=== PATIENT | male | born 1970 | race Caucasian/White ===

== ENCOUNTER → 2018-05-09 08:50 | Outpatient (POV) | payer BC, SELFPAY | PROVIDERS: Visit Provider Specialist | DX: M79.632 Pain in left forearm (principal) | CPT/HCPCS: 95886; 95908 ==

== ENCOUNTER → 2018-10-05 08:32 | Outpatient (CLI) | payer BC, SELFPAY ==
--- NOTE | 2018-10-05 08:39 | XR_ITS ---
XR wrist LT min 3V HISTORY pain ITS.REASON: 3 views ORDERING PHYSICIAN: Debbie Wiggins MD PATIENT AGE: 48 years Comparison: None FINDINGS: There is an old ununited mid scaphoid fracture. The distal fracture fragment is displaced laterally x 9 mm. There is some increased density of the proximal pole which could be due to underlying avascular necrosis. No other significant anomalies are evident. 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 The fracture does appear old.
== END ==
PROVIDERS: PCP Family Medicine; Visit Provider Orthopaedic Surgery
DX: M25.532 Pain in left wrist (principal)
CPT/HCPCS: 73110

== ENCOUNTER → 2020-02-13 08:18 | Outpatient (CLI) | payer BC, SELFPAY ==
--- NOTE | 2020-02-13 08:24 | US_ITS ---
PROCEDURE: US ABDOMEN LIMITED CLINICAL INDICATION: ELEVATED LFT COMPARISON: No exams were available for comparison FINDINGS: PANCREAS: Unremarkable. No obvious mass or abnormal fluid collection. No ductal dilatation LIVER: Diffuse increased echogenicity of the liver with poor through transmission of sound consistent with hepatic steatosis. No focal liver lesion demonstrated. There is appropriate direction of blood flow within non dilated portal vein. RIGHT KIDNEY: Unremarkable. Normal size and echogenicity. No hydronephrosis GALLBLADDER: No gallstones, gallbladder wall thickening, pericholecystic fluid, or biliary dilatation. IMPRESSION: Fatty liver otherwise negative right upper quadrant ultrasound Dictated by: Percy Lieberman MD 02/13/2020 09:34 Percy Lieberman MD in [place] 02/13/2020 09:34
== END ==
PROVIDERS: PCP Family Medicine; Visit Provider Family Medicine
DX: R79.89 Other specified abnormal findings of blood chemistry (principal); R94.5 Abnormal results of liver function studies
CPT/HCPCS: 76705

== ENCOUNTER → 2021-02-18 12:10 | Outpatient (POV) | payer BC, SELFPAY | PROVIDERS: Visit Provider Dermatology | DX: Z00.00 Encounter for general adult medical examination without abnormal findings (principal) ==

== ENCOUNTER → 2021-05-27 13:51 | Outpatient (CLI) | payer BC, SELFPAY ==
[2021-05-27 14:48] LABS: Strep Scrn Group A (Rapid) Negative (Negative)
[2021-05-27 14:58] LABS: Basophils # 0.2 K/mm3 (0-0.2); Basophils % 1.5 % (0.1-2.0); Eosinophils % 0.4 % (0.1-12.0); Hematocrit 48.6 % (42.0-52.0); Hemoglobin 15.8 g/dL (14.1-18.0); Lymphocytes # 2.4 K/mm3 (0.7-4.5); Lymphocytes % 20.6 % (10-50); Mean Corpuscular HGB Conc 32.5 g/dL (31.8-35.4); Mean Corpuscular Hemoglobin 30.3 pg (27.0-31.2); Mean Corpuscular Volume 93.2 fl (80-94); Mean Platelet Volume 8.4 fl (7.4-10.4); Monocytes # 0.5 K/mm3 (0.1-1.0); Monocytes % 4.6 % (1.7-9.3); Neutrophils # 8.6 K/mm3 (1.8-7.8); Neutrophils % 72.9 % (37.0-80.0); Platelet Count 353 K/mm3 (142-424); Red Blood Count 5.21 M/mm3 (4.60-6.20); Red Cell Distribution Width 13.4 % (11.5-17.5); White Blood Count 11.8 K/mm3 (4.8-10.8)
== END ==
PROVIDERS: PCP Family Medicine; Visit Provider Nurse Practitioner
DX: Z11.52 Encounter for screening for COVID-19 (principal); J06.9 Acute upper respiratory infection, unspecified
CPT/HCPCS: 36415; 85025; 87275; 87276; 87430; C9803; U0003; U0005

== ENCOUNTER → 2022-08-17 10:24 | Outpatient (CLI) | payer BC, SELFPAY ==
--- NOTE | 2022-08-17 10:28 | CT_ITS ---
FINAL REPORT CLINICAL HISTORY: H/O TOBACCO USE Smoker, 1/2 ppd x 20 years, first lung screening. FINDINGS: CTDI vol (mGy): 2.90. DLP: 107.[address] images of the chest were obtained using the low-dose protocol for screening. There is no evidence of mediastinal or hilar mass or adenopathy. No axillary mass or adenopathy is identified. On the lung window images, a 2 mm left upper lobe nodule is seen near the left major fissure on image 31. There are several calcified granulomas. Mild pulmonary scarring is seen. Limited imaging of the upper abdomen demonstrates a nonspecific, 16 mm mass in the right liver dome, favor hemangioma or cyst. IMPRESSION: 2 mm left upper lobe nodule. Lung RADS category 2. Recommend 12 month followup low-dose CT for further evaluation. Reviewed, Interpreted and Dictated by Nik Weldon III, MD Transcribed by Brina Davenport Authenticated and [facility]
== END ==
PROVIDERS: PCP Family Medicine; Visit Provider Family Medicine
DX: Z87.891 Personal history of nicotine dependence (principal); Z12.2 Encounter for screening for malignant neoplasm of respiratory organs; I10 Essential (primary) hypertension
CPT/HCPCS: 71271

== ENCOUNTER 2022-10-14 08:04 | Day surgery (SDC) | payer BC, SELFPAY ==
[2022-10-05 11:25] VITALS: BMI 31.1
[2022-10-14 08:23] VITALS: BP 140/88; PULSE 101; RESP 18; TEMP 36.6; O2SAT 98
[2022-10-14 08:46] VITALS: O2SAT 98
--- NOTE | 2022-10-14 09:11 | HMH.SCOPE ---
Procedure: Date: 10/14/22 Patient Date of :: 1970 Procedure Performed:: Colonoscopy Indications:: Screening Performing Provider:: Td Moon MD Referring Provider:: Regino Flower MD Sedation:: see rn notes Procedure:: After placing the patient in the left lateral decubitus position, the colonoscopy was gently inserted into the rectum and under direct visualization advanced to the cecum which was identified by transillumination in the right lower quadrant, identification of the ileocecal valve, appendiceal orifice, and cecal strap. Color, texture, mucosa, and anatomy of the colon were carefully examined with the scope. Bowel preparation was good. Findings:: Anal canal: normal Rectum: hemorrhoids Sigmoid colon: sessile polyp less than 5 mm in size. Removed with cold snare polypectomy Descending colon: sessile polyp less than 5 mm in size. Removed with cold snare polypectomy Splenic flexure: normal Transverse colon: normal without polyps or inflammatory changes Hepatic flexure: normal Ascending colon: normal without polyps or inflammatory changes Cecum: normal Terminal ileum: not visualized Recommendations:: Await pathology results Repat colonoscopy in 5 years Complications:: None Estimated blood obtained (mL): 0 Colonoscopy Component Colonoscopy Component Was a colonoscopy performed during today's procedure?: Yes Recommended follow up colonoscopy of at least 10 years?: Yes
[2022-10-14 09:14] VITALS: BP 133/84; PULSE 102; RESP 18; TEMP 36.2; O2SAT 95
[2022-10-14 09:24] VITALS: BP 128/82; PULSE 86; RESP 18; TEMP 36.2; O2SAT 98
--- NOTE | 2022-10-14 09:24 | P.PN_ITS ---
[facility] Disclaimer: The information contained in this section may have been updated after the patient was seen, as this information can be updated by other users. Medical History History of gastroesophageal reflux (GERD) Hyperlipidemia Hypertension Kidney stone Surgical History History of carpal tunnel surgery of left wrist History of tonsillectomy Family History Other No significant family history Social History Smoking Status: Current every day smoker tobacco type: cigarettes packs per day: 1 pack-years: 25 alcohol intake: current substance use type: denies use current occupational status: employed Travel in the last 8 weeks: None household members: none housing: house lives independently: Yes marital status: single education level: college service: No caffeine: Yes special caroline needs: No do you feel safe at home: Yes victim of physical abuse: No victim of emotional abuse: No victim of sexual abuse: No would you like helpful sources: No [facility] Anesthesia Checklist Patient Identification Patient Identification: Verbal (Name & ) Structural Data Admitted From: Home Planned Operative Procedure/s: colonoscopy Consent for Planned Operative Procedure(s) Verified: Yes Airway Assessment C-Spine Mobility Assessed: Yes TMJ Mobility Assessed: Yes Dentition: Good Dentition Neurological Assessment Level of Consciousness: Awake, Alert and Appropriate Anesthesia Plan Anesthesia Risk discussed: Yes Anesthesia Plan: Verified ASA Class: II Anesthesia Type: MAC
[2022-10-14 09:34] VITALS: BP 133/77; PULSE 84; RESP 18; TEMP 36.2; O2SAT 99
[2022-10-14 09:44] VITALS: BP 126/86; PULSE 84; RESP 18; TEMP 36.2; O2SAT 99
== END 2022-10-14 09:44 | disposition home or self-care (01) ==
PROVIDERS: PCP Family Medicine; Visit Provider Internal Medicine
PROC: 0DJD8ZZ Inspection of Lower Intestinal Tract, Via Natural or Artificial Opening Endoscopic (ICD-10-PCS; CPT 45378; principal; 2022-10-14 09:00)
DX: Z12.11 Encounter for screening for malignant neoplasm of colon (principal); K63.5 Polyp of colon; K64.8 Other hemorrhoids
CPT/HCPCS: 45385

== ENCOUNTER 2023-07-12 15:07 | Emergency (ER) | payer BC, SELFPAY ==
[2023-07-12 15:20] VITALS: BP 151/88; PULSE 98; RESP 18; TEMP 36.4; O2SAT 96; BMI 31.4
--- NOTE | 2023-07-12 15:49 | ED_ITS ---
Discharge Plan Disposition Patient Disposition: Home, Self-Care Condition: Good Prescriptions Prescriptions: New azithromycin [Zithromax] 250 mg tablet 250 mg PO UD DOSE PK Qty: 6 0RF Rx Instructions: Take two (2) tablets today, then one (1) tablet days #2 thru #5 benzonatate 100 mg capsule 100 mg PO TIDP PRN (Reason: Cough) Qty: 30 0RF methylprednisolone 4 mg Tablets,Dose Pack 4 mg PO DIRECTED 6 Days Qty: 21 0RF Rx Instructions: Take 1 pack as directed for 6 days guaifenesin [Mucinex] 600 mg tablet extended release 12hr 600 - 1,200 mg PO BIDP PRN (Reason: Congestion) Qty: 30 0RF No Action lisinopril 20 mg tablet 20 mg PO DAILY omeprazole 40 mg capsule,delayed release(DR/EC) 40 mg PO DAILY pravastatin 40 mg tablet 40 mg PO DAILY fexofenadine [Matilde Allergy] 180 mg Tablet 180 mg PO DAILY amlodipine 5 mg Tablet 5 mg PO DAILY Referrals Follow up/Referrals: Regino Flower MD [Primary Care Provider] - See instructions Activity Restrictions/Add. Instructions Additional Instructions/Restrictions: Drink plenty of fluids. Take tylenol or ibuprofen for pain or fever. Take the medications as directed. Follow up with your regular doctor. GO TO THE ER FOR ANY WORSENING SYMPTOMS Clinical Impressions Clinical Impression: Sinusitis, Bronchitis Instructions Patient Instructions: Sinusitis, DI for Sinusitis Discharge ED Provider: Jayjay Bolton [facility] HPI General Stated complaint: jeanine, cough Mode of Arrival: Ambulatory Source of Information: Patient Limitations: No Limitations Time Seen by Provider: 07/12/23 15:49 Description of Symptoms (Recalled from Triage Doc. by RN): Pt's symptoms are congestion, cough, right ear pain, and sinus pressure. HEENT Symptoms (Recalled from RN notes): Yes Resp Symptoms (Recalled from RN notes): No Skin Symptoms (Recalled from RN notes): No MS Symptoms (Recalled from RN notes): No Functional Status (Recalled from RN notes): n/a History of Present Illness Provider Complaint: He states that he has had sinus congestion, ear pain, sore throat, and a cough for the past 2 days. Related Data Home Medications Medication Instructions Recorded Confirmed lisinopril 20 mg tablet 20 mg PO DAILY htn 09/02/18 07/12/23 omeprazole 40 mg capsule,delayed 40 mg PO DAILY Reflux/Acid reflux 09/02/18 07/12/23 release pravastatin 40 mg tablet 40 mg PO DAILY Cholesterol 09/02/18 07/12/23 amlodipine 5 mg tablet 5 mg PO DAILY htn 10/05/22 07/12/23 fexofenadine 180 mg tablet 180 mg PO DAILY allergies 10/05/22 07/12/23 (Matilde Allergy) Previous Rx's Medication Instructions Recorded azithromycin 250 mg tablet 250 mg PO UD DOSE PK #6 tabs 07/12/23 (Zithromax) benzonatate 100 mg capsule 100 mg PO TIDP PRN Cough #30 caps 07/12/23 guaifenesin 600 mg tablet, 600 - 1,200 mg (1 - 2 x 600 mg) PO 07/12/23 extended release 12 hr (Mucinex) BIDP PRN Congestion #30 tabs methylprednisolone 4 mg tablets in 4 mg PO DIRECTED 6 days #21 tabs 07/12/23 a dose pack Allergies Allergy/AdvReac Type Severity Reaction Status Date / Time atorvastatin [From Lipitor] Allergy Diarrhea Verified 07/12/23 15:29 Worker's Comp Is this a Worker's Comp case?: No [facility] Disclaimer: The information contained in this section may have been updated after the patient was seen, as this information can be updated by other users. Medical History (Updated 07/12/23 @ 16:05 by Jayjay Bolton APRN) Kidney stone History of gastroesophageal reflux (GERD) Hyperlipidemia Hypertension Surgical History History of carpal tunnel surgery of left wrist History of tonsillectomy Family History Other No significant family history Social History Smoking Status: Current every day smoker tobacco type: cigarettes packs per day: 1 alcohol intake: current substance use type: denies use current occupational status: employed Travel in the last 8 weeks: None household members: none housing: house lives independently: Yes marital status: single education level: college service: No caffeine: Yes special caroline needs: No do you feel safe at home: Yes victim of physical abuse: No victim of emotional abuse: No victim of sexual abuse: No would you like helpful sources: No ROS Obtained: Yes All systems reviewed & no additional complaints except as documented Constitutional Constitutional: Reports poor appetite Eyes Eyes: Reports system reviewed and no additional complaints, except as documented ENT Ears, Nose, Mouth, and Throat: Reports as per HPI Cardiovascular Cardiovascular: Reports system reviewed and no additional complaints, except as documented and Denies chest pain Respiratory Respiratory: Denies shortness of breath, Reports chest congestion, Reports cough, Denies stridor and Denies wheezing Gastrointestinal Gastrointestingal: Reports system reviewed and no additional complaints, except as documented; Denies abdominal pain, diarrhea or vomiting Musculoskeletal Musculoskeletal: Reports system reviewed and no additional complaints, except as documented and Denies arthralgias Integumentary/Breasts Skin/Breast: Reports system reviewed and no additional complaints, except as documented and Denies rash Neurologic Neurologic: Denies paresthesias Allergic/Immunologic Allergic/Immunologic: Denies wheezing Physical Exam General General appearance: alert and in no apparent distress Eye Eye exam: Present normal appearance, PERRL and EOMI ENT ENT exam: Present mucous membranes moist and normal external ear exam Expanded ENT Exam External ear exam: Present normal external inspection TM/Canal exam: Bilateral TM: erythema and bulging Nose exam: Absent sinus tenderness Nasal speculum exam: Bilateral: normal Mouth exam: Present normal external inspection; Absent drooling Teeth exam: Present normal inspection Throat exam: Present tonsillar erythema and tonsillomegaly Neck Neck exam: Present normal inspection, full ROM and trachea midline; Absent tenderness, lymphadenopathy or thyromegaly Chest Chest inspection: Present normal inspection and symmetric chest wall rise; Absent tenderness or rash Respiratory Respiratory exam: Present normal lung sounds bilaterally; Absent respiratory distress, wheezes, stridor or accessory muscle use Cardiovascular Cardiovascular exam: Present regular rate, normal rhythm and normal heart sounds Abdominal Exam Abdominal exam: Present soft; Absent distention, tenderness, guarding, rebound or rigidity Extremities Exam Extremities exam: Present normal inspection, full ROM and normal capillary refill; Absent tenderness or calf tenderness Back Exam Back exam: Present normal inspection and full ROM; Absent tenderness Neurological Exam Neurological exam: Present alert and oriented X3 Psychiatric Psychiatric exam: Present normal affect and normal mood Skin Skin exam: Present warm, dry, intact and normal color Lymphatic Lymphatic Findings: no adenopathy Medical Decision Making Medical Records Medical records reviewed: No I reviewed the patient's medical records. Christian Inquiry Pt receiving controlled substance: No Vital Signs: 07/12/23 15:20 Temperature 97.6 F Temperature Source Oral Pulse Rate [Right Radial] 98 H Respiratory Rate 18 Blood Pressure [Right Arm] 151/88 H Blood Pressure Mean [Right Arm] 109 Blood Pressure Source [Right Arm] Automatic Cuff Blood Pressure Position [Right Arm] Sitting 02 Sat by Pulse Oximetry 96 Oxygen Delivery Method Room Air Lab Data Lab results reviewed: Yes I reviewed the patient's lab results.
[2023-07-12 16:12] VITALS: BP 151/88; PULSE 98; RESP 18; TEMP 36.4; O2SAT 96
== END 2023-07-12 16:12 | disposition home or self-care (01) ==
PROVIDERS: Emergency Provider Nurse Practitioner Family; PCP Family Medicine
DX: J40 Bronchitis, not specified as acute or chronic (principal); J01.90 Acute sinusitis, unspecified; R05.9 Cough, unspecified; H92.01 Otalgia, right ear; R09.81 Nasal congestion; J02.9 Acute pharyngitis, unspecified; E78.5 Hyperlipidemia, unspecified; I10 Essential (primary) hypertension; F17.210 Nicotine dependence, cigarettes, uncomplicated
CPT/HCPCS: 99204; 99212; G0463

== ENCOUNTER 2023-08-27 14:42 | Outpatient (CLI) | payer BC, SELFPAY ==
--- NOTE | 2023-08-27 14:45 | CT_ITS ---
FINAL REPORT CLINICAL HISTORY: H/O TOBACCO USE SMOKER 1/2 PPD, 20 YEARS. COMPARISON: 08/17/2022 FINDINGS: CT CHEST LOW DOSE SCREENING HISTORY: Screening exam for lung cancer. Former smoker, 10 pack year smoking history DOSE: CTDIvol: 2.9 mGy, DLP: 102.12 mGy*cm COMPARISON: 08/17/2022 TECHNIQUE: Axial CT without IV contrast administration using low dose protocol FINDINGS: No acute lung disease is present . The 2 mm nodule in the left upper lobe is again seen, tiny and oval in shape, along the major fissure consistent with an intrafissural node. This is best seen on image #32. No pleural or pericardial effusion is seen . No adenopathy or mass lesion is present . IMPRESSION: No change tiny left upper lobe nodule as described, felt to be most likely an intrafissural node. LUNG RADS CATEGORY 1 RECOMMENDATION: 12 month LDCT follow up Reviewed, Interpreted and Dictated by Kike Negron MD Transcribed by Ilene Villegas Authenticated and [facility]
== END 2023-08-27 23:59 | disposition home or self-care (01) ==
LOC: RAD 14:43
PROVIDERS: PCP Family Medicine; Visit Provider Family Medicine
DX: Z87.891 Personal history of nicotine dependence (principal); Z12.2 Encounter for screening for malignant neoplasm of respiratory organs
CPT/HCPCS: 71271

== ENCOUNTER 2023-08-28 23:01 | Emergency (ER) | payer BC, SELFPAY ==
[2023-08-28 23:02] VITALS: BP 152/101; PULSE 99; RESP 17; TEMP 36.7; O2SAT 98; BMI 34.1
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
[2023-08-28 23:21] LABS: Basophils # 0.1 K/mm3 (0-0.2); Basophils % 1.4 % (0.1-2.0); Eosinophils # 0.1 K/mm3 (0.0-0.4); Eosinophils % 1.8 % (0.1-12.0); Hematocrit 45.2 % (42.0-52.0); Hemoglobin 15.3 g/dL (14.1-18.0); Lymphocytes # 2.5 K/mm3 (0.7-4.5); Lymphocytes % 34.2 % (10-50); Mean Corpuscular HGB Conc 33.9 g/dL (31.8-35.4); Mean Corpuscular Hemoglobin 31.6 pg (27.0-31.2); Mean Corpuscular Volume 93.2 fl (80-94); Mean Platelet Volume 7.6 fl (7.4-10.4); Monocytes # 0.5 K/mm3 (0.1-1.0); Monocytes % 6.3 % (1.7-9.3); Neutrophils # 4.2 K/mm3 (1.8-7.8); Neutrophils % 56.4 % (37.0-80.0); Platelet Count 297 K/mm3 (142-424); Red Blood Count 4.85 M/mm3 (4.60-6.20); Red Cell Distribution Width 13.4 % (11.5-17.5); White Blood Count 7.4 K/mm3 (4.8-10.8)
[2023-08-28 23:22] LABS: Microscopic, Urine URINE MICROSCOPIC (MICROSCOPIC)
[2023-08-28 23:23] LABS: Appearance,Urine CLEAR (Clear); Bilirubin,Urine Negative (Negative); Blood, Urine TRACE-I (Negative); Color,Urine YELLOW (Yellow); Glucose,Urine (UA) Negative (Negative); Ketones,Urine Negative (Negative); Leukocyte Esterase,Urine Negative (Negative); Nitrate,Urine Negative (Negative); Protein,Urine Negative (Negative); Specific Gravity, Urine 1.015 (1.005-1.030); Urobilinogen,Urine 0.2 EU/dl (0.2)
[2023-08-28 23:29] LABS: Chloride 103 mmol/L (98-107); Sodium 136 mmol/L (136-145)
[2023-08-28 23:31] LABS: Alanine Aminotransferase 65 U/L (12-78); Aspartate Amino Transferase 64 U/L (17-59); Blood Urea Nitrogen 15 mg/dl (9-20); Creatinine Clearance Estimated 87 mL/min (50-200); Estimated Glomerular Filt Rate 53 ml/min (>60); GFR (African American) 65 ML/MIN (>60)
[2023-08-28 23:32] LABS: Albumin Level 4.2 g/dl (3.5-5.0); Albumin/Globulin Ratio 1.8 (1.1-1.8); Alkaline Phosphatase 73 U/L (38-126); Bilirubin,Total 0.6 mg/dl (0.2-1.3); Calcium 9.4 mg/dl (8.4-10.2); Carbon Dioxide 27 mmol/L (22.0-30.0); Ethyl Alcohol 208 mg/dl (0-10); Globulin 2.4 g/dL (1.3-3.2); Glucose 118 mg/dl (74-100); Total Protein,Serum 6.6 g/dl (6.3-8.2)
[2023-08-28 23:33] VITALS: BP 140/91; PULSE 86; RESP 18; O2SAT 96
[2023-08-28 23:35] LABS: Activated Partial Thrombo Time 25.9 seconds (22.8-30.6); INR 1.07 (0.9-1.1); Prothrombin Time 11.5 seconds (10.1-12.5)
[2023-08-28] MEDS: ONDANSETRON 4MG/2ML VIAL 4 MG IV (23:37)
[2023-08-28] MEDS: MORPHINE 4MG/ML SYRINGE 4 MG IV (23:37)
[2023-08-28] MEDS: LACTATED RINGERS 1000ML 1,000 ML 999 ML IV (23:37)
[2023-08-28 23:39] LABS: Amphetamine/Metha Screen,Urine Negative ng/ml (<1000)
[2023-08-28 23:40] LABS: Barbiturates Screen,Urine Negative ng/ml (<200)
[2023-08-28 23:41] LABS: Benzodiazepines Screen,Urine Negative ng/ml (<200); Cannabinoid Screen,Urine Negative ng/ml (<50)
[2023-08-28 23:42] LABS: Cocaine Screen,Urine Negative ng/ml (<300)
[2023-08-28 23:43] LABS: Methadone Screen,Urine Negative ng/ml (<300); Opiate Screen,Urine Negative ng/ml (<300)
[2023-08-28 23:44] LABS: Phencyclidine Screen,Urine Negative ng/ml (<25)
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
[2023-08-28 23:46] LABS: Lactate Venous 1.9 mmol/L (0.4-2.0); VBG Base Excess -4.5 mmol/L (-2.4-2.3); VBG HCO3 20.5 mmol/L (23-30); VBG PCO2 34.6 mmol/L (35-51); VBG PH 7.39 mmol/L (7.31-7.41); VBG PO2 45.8 mmol/L (28-40); VBG Total CO2 21.5 mmol/L (23-27)
[2023-08-28 23:59] LABS: RBC,Urine Occasional #/hpf (0-3)
[2023-08-29] VITALS (7 sets, daily range): BP systolic 114–138; BP diastolic 69–95; PULSE 75–80; RESP 14–18; TEMP 36.6; O2SAT 97–99; BMI 34.2
[2023-08-29] MEDS: MORPHINE 4MG/ML SYRINGE 4 MG IV (02:36)
[2023-08-29] MEDS: 0.9 % SODIUM CHLORIDE 50 ML VIAL 100 ML IV (03:19)
[2023-08-29] MEDS: SODIUM CHLORIDE 0.9% 10ML SYR (RAD ONLY) 10 ML IV (03:19)
[2023-08-29] MEDS: IOPAMIDOL-370 (76%);100ML BOTTLE 200 ML IV (03:19)
[2023-08-29] MEDS: OXYCODONE 5MG IMMEDIATE RELEASE TABLET 5 MG PO (04:38)
--- NOTE | 2023-08-29 05:01 | PC.NURSE ---
Pt placed in a posterior long arm splint. Pt given instructions on care and advised to follow up with ortho. CR
== END 2023-08-29 05:04 | disposition home or self-care (01) ==
PROVIDERS: Emergency Provider Emergency Medicine; PCP Family Medicine
DX: S52.122A Displaced fracture of head of left radius, initial encounter for closed fracture (principal); K44.9 Diaphragmatic hernia without obstruction or gangrene; K76.0 Fatty (change of) liver, not elsewhere classified; V86.69XA Passenger of other special all-terrain or other off-road motor vehicle injured in nontraffic accident, initial encounter; K21.9 Gastro-esophageal reflux disease without esophagitis; E78.5 Hyperlipidemia, unspecified; I10 Essential (primary) hypertension
CPT/HCPCS: 29105; 70450; 70496; 70498; 71275; 72125; 72128; 72131; 72192; 73060; 73080; 73090; 74174; 80053; 80307; 81001; 82803; 85025; 85610; 85730; 96361; 96374; 96375; 96376; 99285; J2405; Q9967

== ENCOUNTER 2023-09-02 13:56 | Outpatient (CLI) | payer BC, SELFPAY ==
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
== END 2023-09-02 23:59 | disposition home or self-care (01) ==
LOC: RAD 13:57
PROVIDERS: PCP Family Medicine; Visit Provider Orthopaedic Surgery
DX: M25.522 Pain in left elbow (principal); S52.122A Displaced fracture of head of left radius, initial encounter for closed fracture
CPT/HCPCS: 73080

== ENCOUNTER 2023-09-17 14:09 | Outpatient (CLI) | payer BC, SELFPAY ==
--- NOTE | 2023-09-17 14:10 | CT_ITS ---
FINAL REPORT TECHNIQUE: Axial imaging of the left elbow was obtained without contrast. Reformatted images were also obtained and reviewed. This study was performed with techniques to keep radiation doses as low as reasonably achievable (ALARA). Individualized dose reduction techniques using automated exposure control or adjustment of mA and/or kV according to the patient's size were employed. CLINICAL HISTORY: pain FINDINGS: There is redemonstration of a fracture of the lateral radial head with cortical offset. This is best seen on image 31 of series 602. Fracture extends to the joint space. No other bony abnormality is identified. Soft tissues are unremarkable. IMPRESSION: Redemonstration of fracture of the lateral radial head with cortical offset extending to the joint space. Reviewed, Interpreted and Dictated by Dong Branch MD Transcribed by Brina Davenport Authenticated and [facility]
== END 2023-09-17 23:59 | disposition home or self-care (01) ==
LOC: RAD 14:10
PROVIDERS: PCP Family Medicine; Visit Provider Orthopaedic Surgery
DX: M25.522 Pain in left elbow (principal); S52.122A Displaced fracture of head of left radius, initial encounter for closed fracture
CPT/HCPCS: 73200

== ENCOUNTER 2023-10-26 12:28 | Outpatient (CLI) | payer BC, SELFPAY ==
--- NOTE | 2023-10-26 12:35 | XR_ITS ---
FINAL REPORT CLINICAL HISTORY: Lt Elbow Fx COMPARISON: CT of the elbow dated 09/17/2023 FINDINGS: AP, oblique, and lateral views of the right elbow were obtained. There is a prior CT available for comparison dated 09/17/2023. There is a subtle radial head fracture again noted. Joint space is preserved. There is no joint effusion or other soft tissue abnormality. IMPRESSION: Subtle radial head fracture again identified, as seen on the prior CT of the elbow dated 09/17/2023. Reviewed, Interpreted and Dictated by Nik Weldon III, MD Transcribed by Ilene Villegas Authenticated and [facility]
== END 2023-10-26 23:59 | disposition home or self-care (01) ==
LOC: RAD 12:28
PROVIDERS: PCP Family Medicine; Visit Provider Orthopaedic Surgery
DX: M25.522 Pain in left elbow (principal); S52.122A Displaced fracture of head of left radius, initial encounter for closed fracture
CPT/HCPCS: 73080

== ENCOUNTER 2023-12-08 11:00 | Outpatient (RCR) | payer BC, SELFPAY | END 2023-12-08 11:05 | disposition home or self-care (01) | LOC: OT 11:00 | PROVIDERS: Visit Provider Orthopaedic Surgery | DX: M25.522 Pain in left elbow (principal); S52.122A Displaced fracture of head of left radius, initial encounter for closed fracture | CPT/HCPCS: 97010; 97014; 97035; 97110; 97140; 97165; G0283 ==

== ENCOUNTER 2024-08-23 08:35 | Outpatient (CLI) | payer BC, SELFPAY ==
--- NOTE | 2024-08-23 08:37 | CT_ITS ---
FINAL REPORT TECHNIQUE: Axial CT images of the chest were obtained without contrast. Low-dose protocol was utilized. This study was performed with techniques to keep radiation doses as low as reasonably achievable (ALARA). Individualized dose reduction techniques using automated exposure control or adjustment of mA and/or kV according to the patient's size were employed. CLINICAL HISTORY: SCREENING FORMER SMOKER QUIT 1 YEAR AGO, 1PPD X30 YEARS COMPARISON: 08/27/2023 FINDINGS: CT CHEST WITHOUT, LOW DOSE SCREENING CT Di Vol: 2.90 mGy DLP: 108.64 mGy*cm There is no axillary, mediastinal, or hilar adenopathy. The heart size is normal. There is no pleural or pericardial effusion. The lung windows show no suspicious mass or nodule. Calcified granulomas are noted in the left upper and lower lobes. Limited images of the upper abdomen demonstrate fatty infiltration of the liver. IMPRESSION: No suspicious mass or nodule. LR Category 1: 12 month follow-up low-dose chest CT is recommended per Fleischner criteria. Reviewed, Interpreted and Dictated by Dong Branch MD Transcribed by Nichelle Boland Authenticated and [facility]
--- OUTSIDE RECORDS SUMMARY | 2024-08-23 08:37 | XMS_ITS | Data Portability ---
Author Organization [facility] [place] [facility] Address [address] [place] [address] Care Team Providers Care Nanotechnologist Name Role Phone VANNESSA GAGNON Referring Provider DEBORAH SCHNEIDER Primary Care Provider Assessment Encounter Date Assessment Date Assessment LastModified by Organization Details LastModified Time 06/14/2019 06/14/2019 MLF 1) Moderate digital brawny edema (+) fabric bias 2) Moderate ulnar and median nerve irritation with mild hypersensitivity 3) Deficits with pec minor muscle balance and scapular stabilization [email or web address] Not available 06/14/2019 13:15:08 06/22/2019 06/22/2019 Patient will continue working with therapy on aggressive motion and now can discontinue use of his splint and begin working on strengthening exercises as well. Okay for gradual return to activity as tolerated. I encouraged him to continue to refrain from smoking and nicotine use. Discussed that if he has persistent soreness related to the underlying hardware, that in the future we could discuss removal of the hardware if needed. Follow-up again in 6 weeks for repeat assessment and x-rays. [email or web address] Not available 06/23/2019 10:54:44 06/26/2019 06/26/2019 MLF 1) Moderate digital brawny edema (+) fabric bias 2) Moderate ulnar and median nerve irritation with mild hypersensitivity 3) Deficits with pec minor muscle balance and scapular stabilization Not available 06/26/2019 13:00:55 07/05/2019 07/05/2019 MLF 1) Moderate digital brawny edema (+) fabric bias 2) Moderate ulnar and median nerve irritation with mild hypersensitivity 3) Deficits with pec minor muscle balance and scapular stabilization [email or web address] Not available 07/05/2019 13:56:08 09/01/2019 09/01/2019 Patient is clinically and radiographically healed. Okay to continue all activity with the hand and wrist as tolerated without restriction. He'll continue working on his home therapy regimen. Patient will follow up in clinic on an as-needed basis should additional questions or concerns arise. [email or web address] Not available 09/01/2019 17:35:59 Plan of Treatment Reminders Order Date Submit Date Provider Last Modified By Organization Details Last Modified Time Details Appointments None record ed. Lab None record ed. Referral None record ed. Procedures None record ed. Surgeries None record ed. Imaging None record ed. Medication Orders None record ed. Patient TargetsNo targets recorded. Patient Instructions Encounter Date Encounter Id Patient Instructions Last Modified By Organization Details Last Modified Time 06/14/2019 [id number] Cubital Tunnel Syndrome-LC [email or web address] Not available 06/14/2019 14:38:40 STG 1) Improving functional AROM to within 80-90% of the unaffected within an appropriate time-frame from the injury/surgery. 2) Obtain intrinsic length with a PDC of < 1cm and within 80-90% of the unaffected in 3-4 weeks 3) To achieve 80-90% of functional digital pre press operator and pinch strength to maintain normal ADL function Rehab potential is Good Plan of Care (POC: 1-2x/week for 4-6 weeks. [email or web address] Not available 06/14/2019 13:15:08 06/26/2019 [id number] Cubital Tunnel Syndrome-LC [email or web address] Not available 06/26/2019 14:00:15 STG 1) Improving functional AROM to within 80-90% of the unaffected within an appropriate time-frame from the injury/surgery. 2) Obtain intrinsic length with a PDC of < 1cm and within 80-90% of the unaffected in 3-4 weeks 3) To achieve 80-90% of functional digital pre press operator and pinch strength to maintain normal ADL function Rehab potential is Good Plan of Care (POC: 1-2x/week for 4-6 weeks. [email or web address] Not available 06/26/2019 13:00:55 07/05/2019 [id number] Cubital Tunnel Syndrome-LC [email or web address] Not available 07/05/2019 14:41:12 STG 1) Improving functional AROM to within 80-90% of the unaffected within an appropriate time-frame from the injury/surgery. 2) Obtain intrinsic length with a PDC of < 1cm and within 80-90% of the unaffected in 3-4 weeks 3) To achieve 80-90% of functional digital pre press operator and pinch strength to maintain normal ADL function Rehab potential is Good Plan of Care (POC: 1-2x/week for 4-6 weeks. Not available 07/05/2019 13:56:08 Reason for Referral None Reported. Results Created Date Observation Date Name Description Value Unit Range Abnormal Flag Note LastModifiedBy Organization Detail LastModifiedTime 06/22/19 20 06/22/2019 XR, wrist , 2 view [place] [facility] [address] [place] [address] Jess khalil Name: KHANG khalil : 973 Jess khalil 58 Orderi ng Provid er: MACIEJ SHEIKH EXAM DATE: 2019 EXAM: XR LT WRIST, AP/LAT HISTOR Y: Follow up of prior surger y. COMPAR GUILLERMO: 020 FINDIN GS: Again visual ized 9 screws along the dorsum of the carpus for 4 corner fusion . There is no eviden ce of loosen ing or compli cation . No acute fractu re is identi fied. There has been excisi on of the scapho id. IMPRES MADHU: 1. The patien t is status post scapho idecto my and 4 corner fusion in the left wrist withou t eviden ce of loosen ing or compli cation . Interp reted By: Augusto kasper MD Electr onical ly Signed By: Augusto kasper MD on 020 1:37 PM DBA_BACKFIL_ [facility] [place] [address], [place], [address], 10/30/2021 03:39:34 09/01/19 20 09/01/2019 XR, wrist , 2 view [place] [facility] [address] [place] [address] Jess khalil Name: KHANG khalil : 973 Patien t 58 Orderi ng Provid er: MACIEJ SHEIKH EXAM DATE: 2019 EXAM: XR LT WRIST, AP/LAT HISTOR Y: Follow up of prior surger y. COMPAR GUILLERMO: 020 FINDIN GS: Again visual ized 9 screws along the dorsum of the carpus for 4 corner fusion . There is no eviden ce of loosen ing or compli cation . No acute fractu re is identi fied. There has been excisi on of the scapho id. IMPRES MADHU: 1. The patien t is status post scapho idecto my and 4 corner fusion in the left wrist withou t eviden ce of loosen ing or compli cation . Interp reted By: Augusto kasper MD Electr onical ly Signed By: Augusto kasper MD on 09/01/19 10:14 AM [email or web address] [facility] [place] [address] , [place], [address], 10/30/2021 03:39:34 Result Notes None recorded. Problems No Known Problems Procedures Surgical History Date Name Laterality Status Provider Name and Address Organization Details Recorded Time 0 OT Therapeutic Exercise completed RILEY MERRITT/L, CHT [address] [place], [address], [facility] 06/07/2019 11:49:14 0 OT Therapeutic Exercise completed RILEY MERRITT/Erasmo, CHT [address] [place], [address], [facility] 06/05/2019 14:25:43 0 OT Manual Therapy completed RILEY MERRITT/Erasmo, CHT [address] [place], [address], [facility] 06/05/2019 14:25:46 0 PT Paraffin Bath completed RILEY MERRITT/Erasmo, CHT [address] [place], [address], [facility] 06/05/2019 13:42:17 0 OT Therapeutic Exercise completed MYESHA BROWNE, OTR/L, CHT [address] [place], [address], [facility] 06/01/2019 12:21:41 0 OT Manual Therapy completed MYESHA BROWNE, OTR/L, CHT [address] [place], [address], [facility] 06/01/2019 10:24:57 0 PT Paraffin Bath completed MYESHA BROWNE, OTR/L, CHT [address] [place], [address], [facility] 06/01/2019 10:24:58 0 OT Therapeutic Exercise completed MYESHA BROWNE, OTR/L, CHT [address] [place], [address], [facility] 05/30/2019 14:56:24 0 OT Manual Therapy completed MYESHA BROWNE, OTR/L, CHT [address] [place], [address], [facility] 05/30/2019 14:56:21 0 PT Paraffin Bath completed MYESHA BROWNE, OTR/L, CHT [address] [place], [address], [facility] 05/30/2019 14:04:29 0 OT Therapeutic Exercise completed MYESHA BROWNE, OTR/L, CHT [address] [place], [address], [facility] 05/25/2019 10:58:59 0 OT Manual Therapy completed MYESHA BROWNE, OTR/L, CHT [address] [place], [address], [facility] 05/25/2019 10:59:02 0 PT Paraffin Bath completed MYESHA BROWNE, OTR/L, CHT [address] [place], [address], [facility] 05/25/2019 10:31:58 0 OT Therapeutic Exercise completed MYESHA BROWNE, OTR/L, CHT [address] [place], [address], [facility] 05/23/2019 14:04:09 0 OT Manual Therapy completed MYESHA BROWNE, OTR/L, CHT [address] [place], [address], [facility] 05/23/2019 13:02:08 0 PT Paraffin Bath completed MYESHA BROWNE, OTR/L, CHT [address] [place], [address], [facility] 05/23/2019 13:02:08 0 OT Therapeutic Exercise completed MYESHA BROWNE, OTR/L, CHT [address] [place], [address], [facility] 05/18/2019 11:45:22 0 OT Manual Therapy completed MYESHA BROWNE, OTR/L, CHT [address] [place], [address], [facility] 05/18/2019 11:45:25 0 PT Paraffin Bath completed MYESHA BROWNE, OTR/L, CHT [address] [place], [address], [facility] 05/18/2019 11:44:39 0 OT Therapeutic Exercise completed MYESHA BROWNE, OTR/L, CHT [address] [place], [address], [facility] 05/16/2019 11:27:19 0 OT Manual Therapy completed MYESHA BROWNE, OTR/L, CHT [address] [place], [address], [facility] 05/16/2019 10:53:01 0 PT Paraffin Bath completed MYESHA BROWNE, OTR/L, CHT [address] [place], [address], [facility] 05/16/2019 10:53:01 0 Orthotic, WHO, Static Custom completed MYESHA BROWNE OTR/L, CHT [address] [place], [address], [facility] 05/11/2019 10:17:13 0 OT Therapeutic Exercise completed MYESHA BROWNE OTR/L, CHT [address] [place], [address], [facility] 05/11/2019 10:45:10 0 OT Manual Therapy completed MYESHA BROWNE OTR/L, CHT [address] [place], [address], [facility] 05/11/2019 10:45:06 0 PT Paraffin Bath completed MYESHA BROWNE OTR/L, CHT [address] [place], [address], [facility] 05/11/2019 10:17:18 0 OT Manual Therapy completed MYESHA BROWNE OTR/L, CHT [address] [place], [address], [facility] 05/02/2019 13:21:37 9 OT Manual Therapy completed MYESHA BROWNE OTR/L, CHT [address] [place], [address], [facility] 04/12/2019 12:46:37 9 OT Manual Therapy completed MYESHA BROWNE OTR/L, CHT [address] [place], [address], [facility] 04/05/2019 13:23:42 9 OT Evaluation - Moderate complexity completed MYESHA BROWNE OTR/L, CHT [address] [place], [address], [facility] 03/31/2019 10:45:58 9 Op Note completed SMITHA SHEIKH MD [address] [place], [address], [facility] 03/29/2019 17:27:45 9 Injection Joint/Bursa, Interm completed SMITHA SHEIKH MD [address] [place], [address], [facility] 11/01/2018 19:16:59 Imaging Results Imaging Date Name Status LastModified by Organiz [facility] Details LastModified Time 06/22/2019 XR, wrist, 2 view completed DBA_BACKFIL_ [address] [facility] [place] [address] , [place], [address], 10/30/2021 03:39:34 09/01/2019 XR, wrist, 2 view completed DBA_BACKFIL_ [address] [facility] [place] [address] , [place], [address], 10/30/2021 03:39:34 Procedure Notes None recorded. Medical Equipment None Reported. Allergies Allergen ID Allergen Name Allergen Category Reaction Reaction Severity Criticality Documentation Date Start Date Code Code System Note Provider Name and Address Organization Details Recorded Time 219431 Product containin g 3-hydroxy -3-methyl glutaryl- coenzyme A reductase inhibitor (product) medicatio n diarrhea Not available Not available 03/21/2019 06651 009 SNOMED jose stero l medic ation ; pt doesn 't remem edd [facility]12 Medications Name Sig Start Date Stop Date Status Note LastModified by Organization Details LastModified Time amoxicillin 500 mg capsule 11/01 completed Not Available Not Available Not Available pravastatin 40 mg tablet active Not Available Not Available Not Available lisinopril 20 mg tablet active Not Available Not Available Not Available omeprazole 40 mg capsule,del ayed release active Not Available Not Available Not Available meloxicam 7.5 mg tablet Take 1 tablet po qd with food regardles s of pain level for 1 week, then take only prn for pain relief thereafte r 05/11 completed Not Available Not Available Not Available gabapentin 100 mg capsule Take 1 capsule po qhs for 2 week 05/11 completed Not Available Not Available Not Available fluticasone propionate 50 mcg/actuati on nasal spray,suspe nsion active Not Available Not Available Not Available oxycodone 5 mg tablet take 1 tab po q 4-6 hrs prn uncontrol led pain 03/21 completed Not Available Not Available Not Available Claritin active Not Available Not Avai lable Not Available Tylenol active prn Not Available Not Avail able Not Available Vitals Date Recorded Body height Body mass index (BMI) Body weight Provider Name and Address Organization Details Last Updated DateTime 06/22/2019 175.26 cm 29.5 kg/m2 69997.47 g Shalonda Torrez [facility] 06/22/2019 13:48:02 Date Recorded Body height Body mass index (BMI) Body weight Provider Name and Address Organization Details Last Updated DateTime 09/01/2019 175.26 cm 31 kg/m2 78938.4 g Mallorie Ham [facility] 09/01/2019 10:20:16 Social History Question Answer Notes LastModified by Organizat ion Details LastModified Time Tobacco Smoking Status Former Smoker quit 9 Mallorie Jitendra [facility] 03/21/2019 09:13:38 What Is Your Level Of Alcohol Consumption? Occasional Information not available 11/01/2018 What Is Your Level Of Caffeine Consumption? Moderate Information not available 11/01/2018 Are You Currently Employed? Yes Information not available 03/21/2019 Do You Or Have You Ever Used E-cigarettes Or Vape? 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 Right Information not available 11/01/2018 Marital Status Single Informatio n not available 11/01/2018 What Was The Date Of Your Most Recent Tobacco Screening? 11/01/2018 Information not available 06/13/2019 How Much Tobacco Do You Smoke? No Information not available 03/21/2019 Do You Use Any Illicit Or Recreational Drugs? No Information not available 11/01/2018 How Many Years Have You Smoked Tobacco? 20 Information not available 11/01/2018 Sex: Unknown Functional Status None recorded. Mental Status None recorded. Family History Relationship Description Onset Age of this Age Resolved Age Notes LastModified by Organization Details LastModified Time Father No current problems or disability Not available 11/01 10:31:47 Mother No current problems or disability Not available 11/01 10:31:47 Medical History Condition Response Allergies/Hayfever N Anxiety/Depression N Gout N Other N Thyroid Disease N Kidney Stones Y Heart Conditions N Hernia N Migraines N COPD N Glaucoma N Pneumonia N Skin Problems N Immune System Disorder N Anesthesia Complications N Heart Attack ([place]) N Mental Illness N Neurological Problems N Diabetes N Rheumatic Fever N Bleeding Disorder N Arthritis N Seizures/Epilepsy N Blood Clot N Tuberculosis N Genetic Disorder N AIDS/HIV N Cancer N Stroke N Asthma N Blood Thinners N Alcohol Overuse/Alcohol Abuse N Sleep Apnea Y High Cholesterol Y Liver Disease N Included as Review of Systems Y Hypertension Y Osteoporosis N Kidney Disease N Past Encounters Encounter ID Performer Location Encounter Start Date Encounter Closed Date Diagnosis/Indication Diagnosis SNOMED-CT Code Diagnosis ICD10 Code Diagnosis Note [id number] [facility] [address] [place] [address] 11/01/2018 09:37:24 11/01/2018 12:23:13 Fracture of scaphoid bone of wrist 78577690 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 No evidence of radiculopa thy or peripheral neuropathy . 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 No evidence of radiculopa thy or peripheral neuropathy . 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 No evidence of radiculopa thy or peripheral neuropathy . Cubital tu nnel syndrome 26994095 G56.22 Left EMG negative cubital tunnel syndrome with subluxatin g ulnar nerve [id number] SURGERY SCHEDULE [address] [facility] [place] [address] 03/29/2019 11:49:02 03/29/2019 11:50:23 [id number] MYESHA BROWNE, OTR/L, CHT PHYSICAL THERAPY / HAND THERAPY [facility] [address] [place] [address] 03/31/2019 09:46:10 03/31/2019 13:09:02 Cubital tunnel syndrome 96609140 G56.22 Osteoarthr itis of wrist 536735060 M19.039 with 4 corner fusion and scaphoid excision [id number] MYESHA BROWNE, OTR/L, CHT PHYSICAL THERAPY / HAND THERAPY [place] [address] [place] [address] 04/05/2019 12:30:16 04/05/2019 16:21:47 Cubital tunnel syndrome 93078639 G56.22 Osteoarthr itis of wrist 870769268 M19.039 with 4 corner fusion and scaphoid excision [id number] [facility] [address] [place] [address] 04/12/2019 10:34:53 04/17/2019 08:03:31 Postoperative care 403766074 Z48.89 Doing well s/p Left wrist scaphoid excision and four-corne r arthrodesi s with posterior interosseo us nerve neurectomy ; Left cubital tunnel release with subcutaneo us ulnar nerve transposit ion; Left endoscopic carpal tunnel release (DOS: 03/29/19) Post op films of the left wrist today reveal the patient is status post scaphoidec reza and 4 corner fusion with no evidence of hardware complicati on or loosening. 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 No evidence of radiculopa thy or peripheral neuropathy . Cubital tu nnel syndrome 56068288 G56.22 Left EMG negative cubital tunnel syndrome with subluxatin g ulnar nerve [id number] MYESHA BROWNE, JAGJITR/L, T PHYSICAL THERAPY / [facility] [place] [address] 04/12/2019 10:35:58 04/12/2019 12:55:26 Cubital tunnel syndrome 45758256 G56.22 Osteoarthr itis of wrist 113903448 M19.039 with 4 corner fusion and scaphoid excision [id number] MYESHA BROWNE OTR/L, T PHYSICAL THERAPY / HAND THERAPY [place] [address] 05/02/2019 12:38:28 05/02/2019 13:22:25 Cubital tunnel syndrome 66139554 G56.22 Osteoarthr itis of wrist 895143163 M19.039 with 4 corner fusion and scaphoid excision [id number] [place] [address] 05/11/2019 08:28:14 05/11/2019 10:23:32 Postoperative care 929976725 Z48.89 6 weeks s/p Left wrist scaphoid excision and four-corne r arthrodesi s with posterior interosseo us nerve neurectomy ; Left cubital tunnel release with subcutaneo us ulnar nerve transposit ion; Left endoscopic carpal tunnel release (DOS: 03/29/19) Post op films of the left wrist today reveal the patient is status post scaphoidec reza and 4 corner fusion with no evidence of hardware complicati on or loosening. There is evidence of healing across the arthrodesi s sites. [id number] RILEY MERRITT/Erasmo, T PHYSICAL THERAPY / HAND THERAPY [place] [address] [place] [address] 05/11/2019 09:55:08 05/11/2019 13:41:53 Cubital tunnel syndrome 35918913 G56.22 Osteoarthr itis of wrist 166016650 M19.039 with 4 corner fusion and scaphoid excision [id number] RILEY MERRITT/Erasmo, T PHYSICAL THERAPY / HAND THERAPY [place] [address] [place] [address] 05/16/2019 09:54:47 05/16/2019 13:08:17 Cubital tunnel syndrome 25088027 G56.22 Osteoarthr itis of wrist 245179248 M19.039 with 4 corner fusion and scaphoid excision [id number] RILEY MERRITT/Erasmo, [facility] PHYSICAL THERAPY / HAND THERAPY [place] [address] [place] [address] 05/18/2019 10:01:56 05/18/2019 13:09:47 Cubital tunnel syndrome 60659590 G56.22 Osteoarthr itis of wrist 602751184 M19.039 with 4 corner fusion and scaphoid excision [id number] RILEY MERRITT/Erasmo, [facility] PHYSICAL THERAPY / HAND THERAPY [place] [address] [address] 05/23/2019 12:37:19 05/23/2019 14:26:48 Cubital tunnel syndrome 38888078 G56.22 Osteoarthr itis of wrist 497411328 M19.039 with 4 corner fusion and scaphoid excision [id number] RILEY MERRITT/Erasmo, T PHYSICAL THERAPY / HAND THERAPY [place] [address] [place] [address] 05/25/2019 09:35:32 05/25/2019 11:11:35 Cubital tunnel syndrome 21311653 G56.22 Osteoarthr itis of wrist 802375320 M19.039 with 4 corner fusion and scaphoid excision [id number] RILEY MERRITT/Erasmo, T PHYSICAL THERAPY / HAND THERAPY [place] [address] [place] [address] 05/30/2019 13:27:12 05/30/2019 15:14:33 Cubital tunnel syndrome 79614535 G56.22 Osteoarthr itis of wrist 163283773 M19.039 with 4 corner fusion and scaphoid excision [id number] RILEY MERRITT/L, T PHYSICAL THERAPY / HAND THERAPY [place] [address] [place] [address] 06/01/2019 10:06:16 06/01/2019 13:23:49 Cubital tunnel syndrome 97012700 G56.22 Osteoarthr itis of wrist 318852013 M19.039 with 4 corner fusion and scaphoid excision [id number] RILEY MERRITT/L, T PHYSICAL THERAPY / HAND THERAPY [place] [address] [place] [address] 06/05/2019 13:13:18 06/05/2019 15:40:14 Cubital tunnel syndrome 27094998 G56.22 Osteoarthr itis of wrist 318808790 M19.039 with 4 corner fusion and scaphoid excision [id number] RILEY MERRITT/Erasmo, T PHYSICAL THERAPY / HAND THERAPY [place] [address] [place] [address] 6 06/07/2019 10:52:09 06/07/2019 13:15:17 Cubital tunnel syndrome 68373771 G56.22 Osteoarthr itis of wrist 120807869 M19.039 with 4 corner fusion and scaphoid excision [id number] MYESHA BROWNE OTR/L, T PHYSICAL THERAPY / HAND THERAPY [place] [address] [place] [address] 06/14/2019 13:13:38 06/15/2019 09:11:09 Cubital tunnel syndrome 46490435 G56.22 Osteoarthr itis of wrist 759999589 M19.039 with 4 corner fusion and scaphoid excision [id number] [facility] [place] [address] [place] [address] 06/22/2019 13:19:06 06/22/2019 14:41:50 Postoperative care 963481080 Z48.89 12 weeks s/p Left wrist scaphoid excision and four-corne r arthrodesi s with posterior interosseo us nerve neurectomy ; Left cubital tunnel release with subcutaneo us ulnar nerve transposit ion; Left endoscopic carpal tunnel release (DOS: 03/29/19) Post op films of the left wrist today reveal the patient is status post scaphoidec reza and 4 corner fusion with no evidence of hardware complicati on or loosening. There is evidence of healing across the arthrodesi s sites. [id number] MYESHA BROWNE, OTR/L, T PHYSICAL THERAPY / HAND THERAPY [place] [address] [place] [id number] 06/26/2019 12:43:44 06/27/2019 13:43:18 Cubital tunnel syndrome [id number] G56.22 Osteoarthr itis of wrist [id number] M19.039 with 4 corner fusion and scaphoid excision [id number] MYESHA BROWNE OTR/L, T PHYSICAL THERAPY / HAND THERAPY [facility] [address] [place] [id number] 07/05/2019 13:29:19 07/06/2019 09:39:21 Cubital tunnel syndrome [id number] G56.22 Osteoarthr itis of wrist [id number] M19.039 with 4 corner fusion and scaphoid excision [id number] ORTHOPEDI CS [facility] [address] [place] [id number] 09/01/2019 10:01:50 09/01/2019 12:29:23 Postoperative care [id number] Z48.89 5 months s/p Left wrist scaphoid excision and four-corne r arthrodesi s with posterior interosseo us nerve neurectomy ; Left cubital tunnel release with subcutaneo us ulnar nerve transposit ion; Left endoscopic carpal tunnel release (DOS: 03/29/19) Post op films of the left wrist today reveal the patient is status post scaphoidec reza and 4 corner fusion with no evidence of hardware complicati on or loosening. There is evidence of healing across the arthrodesi s sites. Health Concerns Section Related Observation LastModified by Organization Detai ls LastModified Time None Recorded Concern Status LastModified by Organization Details LastModified Time None Recorded Advance Directives Directive None Recorded Payers Encounter Date Sequence Insurance Name Policy Number Policy Barrios Covered Member ID Barrios Member ID Guarantor Name 06/14/2019 1 [place] [employer] [facility] [employer] 111 Khang R German [id number] Khang German 06/22/2019 1 [place] [place] [employer] [facility] [employer] 111 Khang R German [id number] Khang German 06/26/2019 1 [place] [place] [employer] [facility] [employer] 111 Khang R German [id number] Khang German 07/05/2019 1 [place] [employer] [employer] 111 Khang R German [id number] Khang German 09/01/2019 1 [place] [employer] [facility] [employer] 111 Khang R German [id number] Khang German Notes Date Note Type Note Provider Name and Address Organization Details Recorded Time 06/14/2019 text/html Patient History: Pt reports continued progress with mobility and strength DOI: Approximately 1-2 years prior to the surgery. DOS: 03-29-19 Performance Deficits: Pt reports having at least 3 performance deficits that are limiting ADL and IADL functional secondary to having hand/arm surgery. 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 No significant pain, just some focal discomfort to palpation over the dorsal wrist at the surgical site. Reports that motion is gradually improving with therapy. He reports continued complete resolution of preoperative numbness and tingling. No issues with his elbow at this time. SMITHA SHEIKH MD [address] [place], [phone], [facility] 06/23/2019 10:55:03 06/26/2019 text/html Patient History: Pt reports that his x-ray was good, and his physician was pleased with his progress, and wants to continue with active therapy. DOI: Approximately 1-2 years prior to the surgery. DOS: 03-29-19 Performance Deficits: Pt reports having at least 3 performance deficits that are limiting ADL and IADL functional secondary to having hand/arm surgery. MYESHA BROWNE OTR/L, T [address] [place] [address], [phone], [facility] 06/26/2019 14:00:23 07/05/2019 text/html Patient History: Pt reports that his strength is continuing to improve. DOI: Approximately 1-2 years prior to the surgery. DOS: 03-29-19 Performance Deficits: Pt reports having at least 3 performance deficits that are limiting ADL and IADL functional secondary to having hand/arm surgery. RILEY MERRITT/Erasmo, [address], [phone], [facility] 07/05/2019 14:41:25 09/01/2019 text/html Patient reports no pain in the wrist at this time. He has been using his hand and wrist for normal activities aside from heavy lifting. No numbness or tingling. He has been working on a home therapy program. He is very happy with his results. No new complaints. Hand dominance: {{Right* Left ambidex trous}} Location: {{Right Left* Bilater al}} {{Arm # Hand Wrist Elbow Ot her}} Pain level: {{0* 1 2 3 4 5 6 7 8 9 10}} /10 Date of injury: Duration: {{ }} {{ day(s) week(s) mon th(s) year(s)}} Recent Surgery: {{Yes* No}} Procedure: Left wrist scaphoid excision and four-corner arthrodesis with posterior interosseous nerve neurectomy - Left cubital tunnel release with subcutaneous ulnar nerve transposition - Left endoscopic carpal tunnel release Date of surgery:03/29/2019 Duration: {{21# }} {{ day(s) week(s)* mo nth(s) year(s)}} In office procedure? {{Yes No*}} Previous upper extremity surgery? 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 {{Yes* No}} Is this injury associated with a Workers Compensation claim? {{Yes No*}} Patient arrived in: {{cast splint surgica l dressing OTC brace}} Air Grinder Strength: right: left: Pt returns for recheck of Lt wrist. Pt reports no pain and overall no issues and this time. Pt stopped participating in therapy on 07/05/2019 due to COVID-19 SMITHA SHEIKH MD [address] [place] [address], [phone], [facility] 09/01/2019 17:36:08
== END 2024-08-23 23:59 | disposition home or self-care (01) ==
LOC: RAD 08:35
PROVIDERS: PCP Family Medicine; Visit Provider Family Medicine
DX: Z12.2 Encounter for screening for malignant neoplasm of respiratory organs (principal); J98.4 Other disorders of lung; Z87.891 Personal history of nicotine dependence
CPT/HCPCS: 71271